=== PATIENT | female | born 1985 | race Caucasian/White ===

== ENCOUNTER 2018-02-22 18:00 | Observation (INO) | payer OTHER ==
[~2018-02-22] VITALS: Ht 157.5 cm; Wt 51.5 kg
[~2018-02-22 18:00] MED LIST: AUGMENTIN500 MG PO; AUGMENTIN875 MG PO; FLONASE16 G1 BOTH NARES; IBUPROFEN800 MG PO; INDOCIN25 MG PO; MIRALAX255 GM PO; NOHOMEMEDS; PRENATAL VITAM1 EAC2 PO; TYLENOL WITH C1 EACH PO; ULTRAM50 MG PO; ZANAFLEX4 M1 PO
[2018-02-22 19:21] LABS: HEMATOCRIT 43.9 % (36.0-46.0); HEMOGLOBIN 15.3 G/DL (11.9-15.5); MCHC 34.9 G/DL (30.0-36.0); MCV 86.1 FL (83-99); RBC DIS.WIDTH-CV 13.2 % (11.8-14.6); RBC DIS.WIDTH-SD 41.4 % (39-53); WHITE BLOOD COUNT 7.8 K/uL (4.1-10.2)
[2018-02-22 19:23] LABS: PLATELET COUNT 262 K/uL (156-360)
[2018-02-22 19:31] LABS: CHLORIDE 105 mEq/L (99-109); POTASSIUM 2.8 mEq/L (3.7-5.4); SODIUM 140 mEq/L (136-147)
[2018-02-22 19:33] LABS: GLUCOSE 104 mg/dL (70-99)
[2018-02-22 19:37] LABS: CREATININE 0.8 mg/dL (0.6-1.3); GFR ESTIMATE (CALCULATED) > 59 mL/min/; UREA NITROGEN (BUN) 7 mg/dL (9-23)
[2018-02-22 20:50] LABS: MAGNESIUM 2.2 mg/dL (1.3-2.7)
[2018-02-22] MEDS ORDERED: FLONASE16 G1 BOTH NARES (21:43)
[2018-02-22] MEDS ORDERED: SYNTHROID25 MCG PO (21:43)
[2018-02-22] MEDS ORDERED: DEPO-PROVER150 MG/ML IM (21:43)
[2018-02-22] MEDS ORDERED: CLARITIN10 MG PO (21:43)
[2018-02-22] MEDS ORDERED: ADVIL200 MG PO (21:44)
[2018-02-22 22:09] LABS: ALBUMIN 4.3 g/dL (3.2-4.8)
[2018-02-22 22:11] LABS: APPEARANCE CLEAR ((CLEAR)); BILIRUBIN NEGATIVE; BLOOD SMALL; COLOR YELLOW ((YELLOW)); GLUCOSE (STRIP) NEGATIVE; KETONES NEGATIVE; LEUKOCYTES NEGATIVE; NITRITE NEGATIVE; PROTEIN (STRIP) NEGATIVE; SPECIFIC GRAVITY 1.011 (1.000-1.030); UROBILINOGEN 0.2 MG/DL (0.2-1.0)
[2018-02-22 22:13] LABS: TOTAL BILIRUBIN 0.8 mg/dL (0.0-1.0)
[2018-02-22 22:14] LABS: SERUM ETHYL ALCOHOL < 10 mg/dL
[2018-02-22 22:14] LABS: BACTERIA 2+ /HPF; EPITHELIAL CELLS RARE /HPF; MUCUS TRACE /LPF; RED BLOOD CELLS 0-5 /HPF (0-5); UCUL ADDED? YES; WHITE BLOOD CELLS 0-5 /HPF (0-5)
[2018-02-22 22:15] LABS: ALKALINE PHOSPHATASE 63 IU/L (3-129)
[2018-02-22 22:17] LABS: AST (GOT) 17 IU/L (2-34); DIRECT BILIRUBIN 0.3 mg/dL (0.0-0.3)
[2018-02-22 22:18] LABS: ALT (GPT) 14 IU/L (3-49)
[2018-02-22 22:21] VITALS: BP 139/78
[2018-02-22 23:04] LABS: HDL CHOLESTEROL 29 MG/DL (Desirable>=50); LDL CHOLESTEROL 75 mg/dL (Desirable<100); NON-HDL CHOLESTEROL 101 mg/dL (Desirable<160); TOTAL CHOLESTEROL 130 mg/dL (Desirable<200); TRIGLYCERIDES 132 MG/DL (Normal: <150)
[2018-02-23 04:18] VITALS: BP 138/91
[2018-02-23 06:01] LABS: CHLORIDE 113 MEQ/L (99-109); CREATININE 0.7 MG/DL (0.6-1.3); GFR ESTIMATE (CALCULATED) > 59 mL/min/; GLUCOSE 102 mg/dL (70-99); SODIUM 139 MEQ/L (136-147); UREA NITROGEN (BUN) 5 mg/dL (9-23)
[2018-02-23 06:17] LABS: POTASSIUM 4.3 MEQ/L (3.7-5.4)
[2018-02-23 08:05] VITALS: BP 123/87
[2018-02-23 11:50] VITALS: BP 126/71
[2018-02-24 09:27] LABS: HEMOGLOBIN A1c (GLYCOHEMOGLOB) 5.1 % (Below 5.7)
[2018-02-24 09:28] LABS: HEMOGLOBIN A1c (GLYCOHEMOGLOB) 5.3 % (Below 5.7)
== END 2018-02-23 12:25 | disposition home or self-care (01) ==
LOC: EME 18:00 → EDOF 21:31 → 4SOUTH 21:31 → EDOF 21:31 → ENRESERV 21:33 → 4SOUTH 22:11
PROVIDERS: Internal Medicine; Physician Assistant Medical
DX: E87.6 Hypokalemia (principal); R11.2 Nausea with vomiting, unspecified; R19.7 Diarrhea, unspecified; F41.9 Anxiety disorder, unspecified; F32.9 Major depressive disorder, single episode, unspecified; G43.909 Migraine, unspecified, not intractable, without status migrainosus; E03.9 Hypothyroidism, unspecified; F17.210 Nicotine dependence, cigarettes, uncomplicated; Z87.410 Personal history of cervical dysplasia; Z88.8 Allergy status to other drugs, medicaments and biological substances; Z82.49 Family history of ischemic heart disease and other diseases of the circulatory system
CPT/HCPCS: 70450; 70551; 71046; 80048; 80061; 80076; 80306 90; 81003; 83036; 83735; 85027; 87077; 87086; 87186; 93005; 99281; 99285; G0378; G0480; J1650; J3480; J7030